=== PATIENT | female | born 1970 | race Caucasian/White ===

== ENCOUNTER 2016-09-28 05:36 | Day surgery (SDC) | payer OTHER ==
[~2016-09-28] VITALS: Ht 165.1 cm; Wt 59.0 kg
[~2016-09-28 05:36] MED LIST: BETA CAROT25000 UNIT PO; BUTRANS1 EAC4 TD; CYANOCOBAL1000 MCG/2 IM; ERGOCALCIF50000 UNIT PO; FISH OIL 1,0001 EAC7 PO; FLEXERIL10 MG PO; HYDROCODON-ACE1 EAC7 PO; NEURONTIN600 MG PO; STRESS FORMULA1 EA13 PO; SYNTHROID75 MCG PO; VITAMIN B COMP1 EACH PO; WELLBUTRIN100 MG PO
[2016-09-28 06:31] VITALS: BP 114/70
[2016-09-28 07:10] LABS: HEMATOCRIT 34.1 % (36.0-46.0); MCV 92.2 FL (83-99)
[2016-09-28 10:26] VITALS: BP 101/64
[2016-09-28 10:49] VITALS: BP 107/73
== END 2016-09-28 11:00 | disposition home or self-care (01) ==
LOC: SDC 05:36
PROVIDERS: Obstetrics & Gynecology
PROC: 0UL74CZ Occlusion of Bilateral Fallopian Tubes with Extraluminal Device, Percutaneous Endoscopic Approach (ICD-10-PCS; principal; 2016-09-28)
DX: Z30.2 Encounter for sterilization (principal); K66.0 Peritoneal adhesions (postprocedural) (postinfection); N80.3 Endometriosis of pelvic peritoneum; D61.818 Other pancytopenia; E03.9 Hypothyroidism, unspecified; M79.7 Fibromyalgia; Z87.891 Personal history of nicotine dependence; Z98.84 Bariatric surgery status; Z83.3 Family history of diabetes mellitus
CPT/HCPCS: 84702; 85014; 85018; 86900; 86901; J1100; J1170; J1885; J2250; J2405; J2710; J3010; Q0175